=== PATIENT | female | born 1970 | race Caucasian/White ===

== ENCOUNTER 2022-08-12 11:49 | Emergency (ER) | payer MEDICAID | END 2022-08-12 13:57 | disposition home or self-care (01) | LOC: MW.ED 11:49 | DX: M79.641 Pain in right hand (principal); M79.642 Pain in left hand | CPT/HCPCS: 731202650; 73120-50; 99283 ==

== ENCOUNTER 2023-05-23 21:36 | Emergency (ER) | payer MEDICAID | END 2023-05-23 22:57 | disposition left against medical advice (07) | LOC: MW.ED 21:36 | DX: R06.02 Shortness of breath (principal); R10.11 Right upper quadrant pain; I10 Essential (primary) hypertension; F17.210 Nicotine dependence, cigarettes, uncomplicated | CPT/HCPCS: 93005; 93010; 99282; 99284 ==

== ENCOUNTER 2023-06-01 17:14 | Emergency (ER) | payer MEDICAID | END 2023-06-01 18:37 | disposition left against medical advice (07) | LOC: MW.ED 17:14 | DX: Z53.21 Procedure and treatment not carried out due to patient leaving prior to being seen by health care provider (principal) ==

== ENCOUNTER 2024-09-12 10:44 | Emergency (ER) | payer SELFPAY ==
[2024-09-12] MEDS ORDERED: Sodium Chloride 0.9% 2.5 ML Syringe FLUSH PRN (12:04)
[2024-09-12] MEDS ORDERED: Sodium Chloride 0.9% 10 ML Syringe FLUSH PRN (12:04)
[2024-09-12 12:29] LABS: BASOPHILS ABSOLUTE AUTO 0.02 K/uL (0.00-0.20); BASOPHILS PERCENT AUTO 0.2 % (0.0-1.0); EOSINOPHILS ABSOLUTE AUTO 0.06 K/uL (0.00-0.45); EOSINOPHILS PERCENT AUTO 0.6 % (0.0-6.0); HEMATOCRIT 40.9 % (37.0-47.0); HEMOGLOBIN 13.7 g/dL (12.0-16.0); IMMATURE GRAN ABSOLUTE AUTO 0.03 K/uL (0.00-0.05); IMMATURE GRAN PERCENT AUTO 0.3 % (0.0-0.4); LYMPHOCYTES ABSOLUTE AUTO 1.56 K/uL (1.00-4.80); LYMPHOCYTES PERCENT AUTO 16.8 % (24.0-44.0); MEAN CORPUSCULAR HEMOGLOBIN 34.9 pg (28.0-32.0); MEAN CORPUSCULAR HGB CONC 33.5 g/dL (32.0-36.0); MEAN CORPUSCULAR VOLUME 104.3 fL (83.0-99.0); MEAN PLATELET VOLUME 8.6 fL (9.4-12.3); MONOCYTES ABSOLUTE AUTO 0.91 K/uL (0.00-0.80); MONOCYTES PERCENT AUTO 9.8 % (0.0-8.0); NEUTROPHILS ABSOLUTE AUTO 6.73 K/uL (1.80-7.70); NEUTROPHILS PERCENT AUTO 72.3 % (41.0-71.0); PLATELET COUNT,PLT 282 K/uL (150-400); RED BLOOD CELL COUNT 3.92 M/uL (4.10-5.30); WHITE BLOOD CELL COUNT,WBC 9.31 K/uL (3.9-11.3)
[2024-09-12 12:41] LABS: INR 1.11 (0.86-1.11)
[2024-09-12 13:14] LABS: A/G RATIO 0.7 (0.9-1.6); ALANINE AMINOTRANSFERASE,ALT 68 IU/L (14-63); ALBUMIN 3.1 g/dL (3.4-5.0); ALKALINE PHOSPHATASE 134 U/L (46-116); ASPARTATE AMNIOTRANSFERASE,AST 123 IU/L (15-37); BILIRUBIN TOTAL 0.7 mg/dL (0.2-1.0); BLOOD UREA NITROGEN,BUN 7 mg/dL (7.0-18.0); CALCIUM 9.5 mg/dL (8.5-10.1); CARBON DIOXIDE,CO2 25.8 mmol/L (21.0-32.0); CHLORIDE,CL 100 mmol/L (98-107); CREATININE 0.8 mg/dL (0.6-1.0); ESTIMATED GFR 86 mL/min (>60); GLUCOSE RANDOM 119 mg/dL (74-106); LIPASE 25 U/L (16-77); POTASSIUM,K 3.6 mmol/L (3.5-5.1); PRO B-TYPE NATRIUR PEPT,BNPPRO 61 pg/mL (0-125); PROTEIN TOTAL,TP 7.6 g/dL (6.4-8.2); SODIUM,NA 137 mmol/L (136-145)
[2024-09-12] MEDS: Iopamidol 755 Mg/ML 100 ML Bottle IVPUSH ONE (15:45)
[2024-09-12] MEDS: Lactated Ringers 2,000 ML IV ONE (17:12)
[2024-09-12] MEDS: Lactated Ringers 1,000 ML IV ONE (17:16)
== END 2024-09-12 18:02 | disposition home or self-care (01) ==
LOC: MW.ED 10:44
DX: K42.9 Umbilical hernia without obstruction or gangrene (principal); I10 Essential (primary) hypertension; E03.9 Hypothyroidism, unspecified; F17.210 Nicotine dependence, cigarettes, uncomplicated; Z88.2 Allergy status to sulfonamides; Z88.8 Allergy status to other drugs, medicaments and biological substances; Z75.8 Other problems related to medical facilities and other health care
CPT/HCPCS: 36415; 71045; 74177; 80053; 83690; 83880; 85025; 85610; 96360; 99284; J7120; Q9967

== ENCOUNTER 2024-11-01 20:53 | Emergency (ER) | payer SELFPAY ==
[2024-11-01] MEDS: Ondansetron 4 MG/2 ML SDV IVPUSH ONE (21:24)
[2024-11-01 21:25] LABS: BASOPHILS ABSOLUTE AUTO 0.04 K/uL (0.00-0.20); BASOPHILS PERCENT AUTO 0.3 % (0.0-1.0); EOSINOPHILS ABSOLUTE AUTO 0.06 K/uL (0.00-0.45); EOSINOPHILS PERCENT AUTO 0.5 % (0.0-6.0); HEMATOCRIT 41.9 % (37.0-47.0); HEMOGLOBIN 14.1 g/dL (12.0-16.0); IMMATURE GRAN ABSOLUTE AUTO 0.05 K/uL (0.00-0.05); IMMATURE GRAN PERCENT AUTO 0.4 % (0.0-0.4); LYMPHOCYTES ABSOLUTE AUTO 2.05 K/uL (1.00-4.80); LYMPHOCYTES PERCENT AUTO 15.6 % (24.0-44.0); MEAN CORPUSCULAR HEMOGLOBIN 35.3 pg (28.0-32.0); MEAN CORPUSCULAR HGB CONC 33.7 g/dL (32.0-36.0); MONOCYTES ABSOLUTE AUTO 1.16 K/uL (0.00-0.80); MONOCYTES PERCENT AUTO 8.9 % (0.0-8.0); NEUTROPHILS ABSOLUTE AUTO 9.74 K/uL (1.80-7.70); NEUTROPHILS PERCENT AUTO 74.3 % (41.0-71.0); PLATELET COUNT,PLT 439 K/uL (150-400); RED BLOOD CELL COUNT 3.99 M/uL (4.10-5.30)
[2024-11-01] MEDS: Morphine 4 MG/ML Syringe IVPUSH ONE (21:26)
[2024-11-01 21:40] LABS: A/G RATIO 0.5 (0.9-1.6); ALBUMIN 2.5 g/dL (3.4-5.0); BILIRUBIN TOTAL 0.8 mg/dL (0.2-1.0); CARBON DIOXIDE,CO2 22.5 mmol/L (21.0-32.0); EST CRCL DRUG DOSING (CG) 47.4 mL/min; PROTEIN TOTAL,TP 7.6 g/dL (6.4-8.2)
[2024-11-01 21:57] LABS: INR 1.07 (0.86-1.11)
[2024-11-01 22:24] LABS: APPEARANCE,URINE CLOUDY; COLOR,URINE YELLOW; GLUCOSE,URINE NEGATIVE (NEGATIVE); KETONES,URINE TRACE mg/dL (NEGATIVE); LEUKOCYTE ESTERASE,URINE SMALL (NEGATIVE); NITRITE,URINE POSITIVE (NEGATIVE); OCCULT BLOOD,URINE MODERATE (NEGATIVE); PROTEIN,URINE 100 mg/dL (NEGATIVE)
[2024-11-01] MEDS: Magnesium Citrate Solution 296 ML Bottle PO ONE (22:31)
[2024-11-01 22:45] LABS: BILIRUBIN,URINE MODERATE (NEGATIVE)
[2024-11-01] MEDS: Polyethylene Glycol 3350 Powder 17 GM Packet PO ONE (22:45)
[2024-11-01 22:46] LABS: BACTERIA,URINE 4+ (NEGATIVE); EPITHELIAL CELLS,URINE MANY (NONE-FEW); WBC,URINE 35-40 (0-5/HPF)
== END 2024-11-01 22:55 | disposition home or self-care (01) ==
LOC: MW.ED 20:53
DX: K59.00 Constipation, unspecified (principal); F41.9 Anxiety disorder, unspecified; I10 Essential (primary) hypertension; Z88.1 Allergy status to other antibiotic agents; Z88.2 Allergy status to sulfonamides; Z79.899 Other long term (current) drug therapy
CPT/HCPCS: 36415; 71045; 74018; 80053; 81001; 83690; 84484; 85025; 85610; 85730; 93005; 96374; 96375; 99285; A9270; J2270; J2405

== ENCOUNTER 2024-11-20 16:40 | Emergency (ER) | payer SELFPAY ==
[2024-11-20 17:08] LABS: BASOPHILS ABSOLUTE AUTO 0.05 K/uL (0.00-0.20); BASOPHILS PERCENT AUTO 0.4 % (0.0-1.0); EOSINOPHILS ABSOLUTE AUTO 0.13 K/uL (0.00-0.45); EOSINOPHILS PERCENT AUTO 1.2 % (0.0-6.0); HEMATOCRIT 40.6 % (37.0-47.0); HEMOGLOBIN 13.4 g/dL (12.0-16.0); IMMATURE GRAN ABSOLUTE AUTO 0.06 K/uL (0.00-0.05); IMMATURE GRAN PERCENT AUTO 0.5 % (0.0-0.4); LYMPHOCYTES ABSOLUTE AUTO 1.38 K/uL (1.00-4.80); LYMPHOCYTES PERCENT AUTO 12.3 % (24.0-44.0); MEAN CORPUSCULAR HEMOGLOBIN 34.7 pg (28.0-32.0); MEAN CORPUSCULAR VOLUME 105.2 fL (83.0-99.0); MEAN PLATELET VOLUME 8.7 fL (9.4-12.3); MONOCYTES ABSOLUTE AUTO 1.12 K/uL (0.00-0.80); NEUTROPHILS ABSOLUTE AUTO 8.45 K/uL (1.80-7.70); NEUTROPHILS PERCENT AUTO 75.6 % (41.0-71.0); PLATELET COUNT,PLT 436 K/uL (150-400); RED BLOOD CELL COUNT 3.86 M/uL (4.10-5.30); WHITE BLOOD CELL COUNT,WBC 11.19 K/uL (3.9-11.3)
[2024-11-20] MEDS: Iopamidol 755 MG/ML 500 ML Multipack Bottle IVPUSH STA (17:17)
[2024-11-20] MEDS: Morphine 2 MG/ML SYRINGE IVPUSH ONE (17:18)
[2024-11-20] MEDS: Ondansetron 4 MG/2 ML SDV IVPUSH ONE (17:25)
[2024-11-20 19:13] LABS: BODY FLUID TYPE PER
[2024-11-20] MEDS: Albumin 25% 12.5 GM/50 ML Bag IV ONE (19:41)
[2024-11-20 19:47] LABS: MONONUCLEAR, BODY FLUID 73.8 %; POLYMORPHONUCLEAR, BODY FLUID 26.2 %
[2024-11-20 19:55] LABS: RBC,BODY FLUID < 3000 /uL
[2024-11-20 19:59] LABS: WBC BODY FLUID 264 /uL
[2024-11-21 00:15] LABS: ALANINE AMINOTRANSFERASE,ALT 41 IU/L (14-63); ALBUMIN 2.2 g/dL (3.4-5.0); ALKALINE PHOSPHATASE 208 U/L (46-116); ASPARTATE AMNIOTRANSFERASE,AST 105 IU/L (15-37); BLOOD UREA NITROGEN,BUN 8 mg/dL (7.0-18.0); CALCIUM 9.1 mg/dL (8.5-10.1); CARBON DIOXIDE,CO2 21.9 mmol/L (21.0-32.0); CHLORIDE,CL 99 mmol/L (98-107); CREATININE 0.9 mg/dL (0.6-1.0); EST CRCL DRUG DOSING (CG) 52.67 mL/min; GLUCOSE RANDOM 129 mg/dL (74-106); LIPASE 31 U/L (16-77); POTASSIUM,K 4.6 mmol/L (3.5-5.1); PROTEIN TOTAL,TP 7.1 g/dL (6.4-8.2); SODIUM,NA 132 mmol/L (136-145)
[2024-11-21 00:16] LABS: A/G RATIO 0.5 (0.9-1.6); ESTIMATED GFR 75 mL/min (>60); ETHANOL BLOOD MEDICAL < 3.0 mg/dL
[2024-11-21 01:14] LABS: AMYLASE,BODY FLUID 14 U/L; PROTEIN,BODY FLUID 1.6 g/dL
[2024-11-21 01:33] LABS: GLUCOSE,BODY FLUID 133 mg/dL
[2024-11-21 03:24] LABS: BILIRUBIN TOTAL 0.8 mg/dL (0.2-1.0)
[2024-11-21 06:59] LABS: APPEARANCE,BODY FLUID CLOUDY; COLOR,BODY FLUID YELLOW
== END 2024-11-20 21:34 | disposition left against medical advice (07) ==
LOC: MW.ED 16:40
DX: R18.8 Other ascites (principal); R10.84 Generalized abdominal pain; I10 Essential (primary) hypertension; Z88.1 Allergy status to other antibiotic agents; Z88.2 Allergy status to sulfonamides; Z79.899 Other long term (current) drug therapy
CPT/HCPCS: 36415; 49083; 71275; 74177; 80048; 80076; 80307; 82140; 82150; 82945; 83605; 83690; 84157; 84484; 85025; 87070; 87075; 87205; 89050; 93005; 96374; 96375; 99285; J2270; J2405; P9047; Q9967; 93010; 99284